=== PATIENT | female | born 1960 ===

== ENCOUNTER 2018-11-13 13:31 | Outpatient (RCR) | payer OTHER ==
--- NOTE | 2018-11-13 12:43 | RADIOLOGY IMAGING REPORT ---
FACILITY: [facility] - [place] PATIENT NAME: Estefania Chacko : 1960 MR: [id number] V: [id number] EXAM DATE: ORDERING PHYSICIAN: RUSH HOUGH TECHNOLOGIST: Location: [facility] Patient: Estefania Chacko : 1960 Visit/Account:[id number] Date of Sevice: 11/13/2018 GALLBLADDER HISTORY: Right upper quadrant pain, positive Subramanian sign COMPARISON: None. FINDINGS: Gallbladder: There multiple shadowing stones within the gallbladder. The bladder wall is thickened a t 4.7 mm periods a positive Subramanian sign by technologist notation. Liver: There is a coarse echotexture to the liver which can be seen with fatty infiltration other inf iltrative process Common duct: Normal, 3.5 mm diameter. Pancreas: Not well seen due to body habitus Right kidney: Appears unremarkable measuring 9 cm in length Upper abdominal aorta and IVC: Patent. Ascites: None visualized. IMPRESSION: Cholelithiasis with gallbladder wall thickening and a positive Subramanian sign although there is no demon stration of biliary ductal dilatation Pancreas not well seen due to body habitus Coarse echotexture to the liver which can be seen with fatty infiltration or other infiltrative proce ss Report Dictated By: Bhavna Avalos MD at 11/13/2018 12:36 PM Report E-Signed By: Bhavna Avalos MD at 11/13/2018 12:38 PM WSN:[email or web address]
[~2018-11-13 13:31] MED LIST: BIMOD OP; CIP500 PO; ESC10 PO; HYDR-3503 PO; LOR5 PO; METO200T33 PO; NAPR500T75 PO; NIFE30TA4 PO; PRE20 PO
--- NOTE | 2018-11-14 15:30 | RADIOLOGY IMAGING REPORT ---
FACILITY: [facility] - [place] PATIENT NAME: Estefania Chacko : 1960 MR: [id number] V: [id number] EXAM DATE: ORDERING PHYSICIAN: RUHS HOUGH TECHNOLOGIST: Location: [facility] Patient: Estefania Chacko : 1960 Visit/Account:[id number] Date of Sevice: 11/14/2018 Exam type: CHEST PA LAT History: Cough Comparison: June 28, 2016. Findings: The lungs are free of acute effusions, infiltrates or edema. The cardiac silhouette is enlarged but unchanged. There is moderate ectasia the thoracic aorta. There is an exaggeration of normal thoraci c kyphosis and spondylotic changes of the thoracic spine IMPRESSION: 1. Cardiomegaly unchanged No evidence of acute pulmonary consolidation Report Dictated By: Bhavna Avalos MD at 11/14/2018 3:23 PM Report E-Signed By: Bhavna Avalos MD at 11/14/2018 3:24 PM WSN:[email or web address]
[2018-11-21] MEDS ORDERED: VENL100T22 PO (15:48)
[2018-11-21] MEDS ORDERED: VENL75TA12 PO (15:48)
[2018-11-21] MEDS ORDERED: VENL50TA23 PO (15:48)
== END 2018-11-14 18:00 | disposition home or self-care (01) ==
LOC: US 13:31 → EDSTATUS 11-14 13:31 → US 11-14 18:00
PROVIDERS: ATTEND Nurse Practitioner Family
DX: K80.20 Calculus of gallbladder without cholecystitis without obstruction (principal); R19.8 Other specified symptoms and signs involving the digestive system and abdomen; R93.9 Diagnostic imaging inconclusive due to excess body fat of patient; I51.7 Cardiomegaly
CPT/HCPCS: 71046; 76705

== ENCOUNTER 2018-11-27 01:45 | Observation (INO) | payer OTHER ==
[2018-11-21 16:40] LABS: PLATELET COUNT, AUTOMATED 255 K/uL (150-450)
--- NOTE | 2018-11-21 16:50 | EKG ---
[place] [facility] [place] NAME: ANDRIY COTE : [id number] MR: [id number] V: [id number] EXAM DATE: ORDERING PHYSICIAN: EDYTA DIETZ TECHNOLOGIST: BERTHA Mccann Reason : PRE-OP Blood Pressure : / mmHG Vent. Rate : 060 BPM Atrial Rate : 060 BPM P-R Int : 140 ms QRS Dur : 098 ms QT Int : 432 ms P-R-T Axes : 046 026 047 degrees QTc Int : 432 ms Normal sinus rhythm Normal ECG No previous ECGs available Confirmed by ERICK GARCIA ([id number]) on 11/21/2018 7:54:30 PM Referred By: RASHAD Confirmed By:ERICK GARCIA
[~2018-11-27] VITALS: Ht 157.5 cm; Wt 102.5 kg
[2018-11-27] VITALS (11 sets, daily range): BP systolic 94–150; BP diastolic 50–97
[~2018-11-27 01:45] MED LIST changes: +VENL100T22 PO; +VENL50TA23 PO; +VENL75TA12 PO
[2018-11-27] MEDS ORDERED: INDOCYANINE GREEN 25 MG VIAL IVP ONE (10:00)
[2018-11-27] MEDS ORDERED: PROPOFOL EMUL(*) 10MG/ML 20 ML 20 ML ONE (12:19)
[2018-11-27] MEDS ORDERED: DEXAMETHASONE SOD 4 MG/ML VIAL ONE (12:19)
[2018-11-27] MEDS ORDERED: METOCLOPRAMIDE 10 MG/2 ML SDV ONE (12:19)
[2018-11-27] MEDS ORDERED: LIDOCAINE MPF 1% 5 ML VIAL ONE (12:19)
[2018-11-27] MEDS ORDERED: ONDANSETRON 4 MG/2 ML VIAL ONE (12:19)
[2018-11-27] MEDS ORDERED: fentaNYL CITR 250 MCG/5 ML AMP ONE (13:37)
[2018-11-27] MEDS ORDERED: SUGAMMADEX SOD 200 MG/2 ML SDV ONE (13:43)
[2018-11-27] MEDS ORDERED: fentaNYL CITR 100 MCG/2 ML AMP ONE ×2 (14:35→18:36)
[2018-11-27] MEDS ORDERED: AMPICILLIN/SULBACT (*) 3 GM VL 3 GM in NS(*) 0.9% 100 ML BAG 100 ML IVPB ONE (14:40)
[2018-11-27] MEDS ORDERED: NORMOSOL R SOLN(*) 1000 ML BAG 1,000 ML IV PRN (14:40)
[2018-11-27] MEDS ORDERED: LIDOCAINE/SOD BICARB 8.4% SYR ID ONE (14:40)
[2018-11-27] MEDS ORDERED: MIDAZOLAM 2 MG/2 ML VIAL IVP PRN (14:40)
[2018-11-27] MEDS ORDERED: FAMOTIDINE 20 MG TAB PO ONE (14:40)
[2018-11-27] MEDS ORDERED: ACETAMINOPHEN 500 MG TAB PO ONE (14:40)
[2018-11-27] MEDS ORDERED: PREGABALIN 150 MG CAPSULE PO ONE (14:40)
[2018-11-27] MEDS ORDERED: ROPIVACAINE 0.5% 20 ML VIAL ONE (15:01)
[2018-11-27] MEDS ORDERED: IOPAMIDOL 61% 100 ML INFUS BTL 100 ML ONE (15:01)
[2018-11-27] MEDS ORDERED: LEVOFLOXACIN/D5W*500 MG/100 ML 100 ML IVPB ONE ×2 (15:27→15:33)
[2018-11-27] MEDS ORDERED: WATER STERILE FOR IRRIG 1000ML IR ONE (17:02)
[2018-11-27] MEDS ORDERED: NS 0.9% IRRIGATION 1000ML PLCT IR ONE (17:02)
[2018-11-27] MEDS ORDERED: NS(*) 0.9% 1000 ML BAG 1,000 ML IV PRN (18:02)
[2018-11-27] MEDS ORDERED: ONDANSETRON 4 MG/2 ML VIAL IVP PRN (18:05)
[2018-11-27] MEDS ORDERED: MORPHINE 2 MG/ML SYR IVP PRN (18:05)
[2018-11-27] MEDS ORDERED: FLUSH 10 ML SYR IVP PRN (18:05)
--- NOTE | 2018-11-27 18:23 | Post Operative Progress Note ---
Post Operative Progress Note Date: Nov 27, 2018 Time: 18:14 Surgeon: Miri Dictation number: [id number] Anesthesia: GETA by Dr. Alfred Pre-Op Diagnosis: Symptomatic cholelithiasis Post-Op Diagnosis: Cholecystitis Findings: Markedly inflamed gallbladder with significant edema IOC attempted, couldn't get any contrast to flow through cystic duct Procedure(s): Robotic cholecystectomy Specimen Removed:(May be N/A): Gallbladder and contents Complications: None Fluids: See anesthesia record Estimated Blood Loss: Minimal Date OP Note Dictated: Nov 27, 2018 Time OP Note Dictated: 18:15 EDYTA SOLORZANO MD Nov 27, 2018 18:23
[2018-11-27] MEDS ORDERED: ALBUTEROL/IPRATROPIUM 3 ML NEB NEB PRN (18:30)
--- NOTE | 2018-11-27 19:55 | OPERATIVE REPORT 1 ---
EVENT DATE: November 27, 2018 SURGEON: Angel Chery MD ANESTHESIOLOGIST: Angel Alfred MD ANESTHESIA: General endotracheal anesthesia. PREOPERATIVE DIAGNOSIS Symptomatic gallstones. POSTOPERATIVE DIAGNOSIS Qhgii-mo-xrcdmvx cholecystitis. PROCEDURE PERFORMED Robotic cholecystectomy with attempted cholangiogram. COMPLICATIONS None. CONDITION Stable. BLOOD LOSS Minimal. FINDINGS This patient's gallbladder was very thickened and appeared to have jeknw-al-[id number] inflammation with pericholecystic edema. I attempted to perform a cholangiogram; however, in spite of being able to cannulate the cystic duct, we could not get any contrast to flow, even with backing the catheter up with the idea that it was possibly up against a valve, but even then it would not flow. SPECIMENS Gallbladder and contents. INDICATIONS This is a 58-year-old female who was referred to my office with complaints of right upper quadrant pain exacerbated by eating. She was found to have gallstones, and there was even a suggestion of a possibility of cholecystitis, but when I saw her in the office, she was no longer having any pain. She was requesting to have her gallbladder removed. DESCRIPTION OF PROCEDURE The patient was brought to the operating room and placed upon the operating table. General endotracheal anesthesia was administered, and her abdomen was prepped and draped in a sterile fashion. Timeout was completed, and I injected the infraumbilical skin with 0.5% ropivacaine plain and made a curvilinear smiley face type incision in the infraumbilical rim. I dissected through the dermis and then the subcutaneous fat and identified the midline fascia. I made a vertical incision in the midline fascia, grasped the fascial edges with Darwin clamps, and retracted the fascia towards the ceiling away from the underlying viscera. I then bluntly entered the peritoneal cavity with my finger. I placed two interrupted 0 Vicryl sutures transversely through the vertical fascial defect and inserted a 12 mm Analisa robotic type port through this wound and secured it in place with sutures. I insufflated the abdomen to a pressure of 15 mmHg and the inserted the robotic camera into the abdomen. Next under direct visualization, I placed an 8 mm robotic port in the right mid abdomen and two 8 mm robotic ports in the left abdomen, one in the left subcostal space anterior axillary line and the other one about half way between the umbilicus and the further left upper quadrant port. After this was completed, the patient was placed in reverse Trendelenburg and planed towards the left to remove the viscera from the right upper quadrant, and then the robot was brought in, docked, targeted, and the instruments inserted. I then grasped the fundus of the gallbladder and retracted it towards the patient's right shoulder. She had significant adhesions of omentum to the gallbladder. The gallbladder appeared to be grossly inflamed. I took the adhesions down fairly easily with the hook electrocautery, but there was quite a bit of them, and it took a while to do this all the way down to the infundibulum. Her entire gallbladder was surrounded by a thick layer of edematous fat that I had to get through to even identify the critical structures. Ultimately with a combination of hook electrocautery, dissection, blunt dissection with the hook, and using Firefly intermittently through the procedure, I was able to identify the cystic duct as well as the common bile duct. I also identified the artery adjacent to the cystic duct, and both the duct and the artery were cleaned off. The artery was clipped proximally and distally and divided between clips. I clipped the cystic duct at the infundibular-cystic duct junction, made a ductotomy adjacent to the clip, and threaded the cholangiocatheter that was inserted in her right subcostal skin at the beginning of the case, and then I fed it into the ductotomy. I was able to get it in for a little over 0.5 cm to almost 1 cm and clipped it into place. I could not get any saline to flush, and so I backed the catheter out a little bit. I got a little bit to flush, but then it stopped again. Ultimately, the catheter was pulled out, and the duct already had the clip on it. This patient was low risk for choledocholithiasis and had no real preop symptoms of dilated common duct or LFT abnormalities, and so I clipped the duct with three clips distal to the ductotomy and then divided the duct between the upper clips. I then divided the posterior attachments of the gallbladder, it from the gallbladder fossa, and then ultimately the gallbladder was placed in a surgical specimen retrieval bag and removed from the abdomen through the umbilical port site. The gallbladder fossa was very oozy, and the dissection was not clean due to the inflammation, but ultimately after undocking the robot, and I scrubbed back in, I was able to cauterize the gallbladder fossa, and then it was hemostatic. Then, I covered it in Surgicel and Jeremy hemostatic powder. At the of this case, it was completely dry. I irrigated and dried up over the liver and down on Ordoñez pouch and removed all irrigation fluid. At the end of this, everything looked great with no active bleeding. I did inspect the gallbladder fossa with no active bleeding. I did inspect the gallbladder fossa for both cystic duct and artery stumps for bleeding and bile leaks, and there was none. I then removed all the instruments, desufflated the abdomen, removed the ports, and then placed another 0 Vicryl jhelwu-fj-roakl suture through the vertical fascial defect and tied all three of these down with good reapproximation of the fascial edges. I then closed the skin at each port site with 4-0 Monocryl subcuticular suture. The skin was cleaned and dried, and Steri-Strips were applied, followed by sterile surgical dressings. The patient was awakened, extubated in the operating room, and transported to the recovery room in stable condition having tolerated the procedure without any apparent problems. ANNALISE
[2018-11-27] MEDS: DOCUSATE SODIUM 100 MG CAP PO SCH (20:36)
[2018-11-27] MEDS: FAMOTIDINE 20 MG TAB PO SCH (20:36)
[2018-11-28] VITALS: BP 132/74
[2018-11-28 01:00] VITALS: BP 129/68
[2018-11-28 02:00] VITALS: BP 135/69
[2018-11-28 03:30] VITALS: BP 151/80
[2018-11-28] MEDS ORDERED: PER PO (08:04)
[2018-11-28] MEDS ORDERED: DOCU-202 PO (08:04)
--- NOTE | 2018-11-28 08:09 | Short(Outpt) Discharge Summary ---
Discharge Summary Reason for Hosp/Final Diag: (1) Cholecystitis Status: Resolved Hospital Course & Plan: Robotic cholecystectomy completed without problems. Pt tolerated the procedure without issues but remained in the hospital overnight due to some respiratory issues in recovery. Now doing much better. Will d/c to home on home O2. (2) Smoker Status: Chronic (3) Obesity, Class III, BMI 40-49.9 (morbid obesity) Status: Chronic (4) Postoperative hypoxia Status: Acute Hospital Course & Plan: Home O2 Departure Discharge to: Home, Self Care Discharge Instructions Home Meds Active Scripts Oxycodone/Acetaminophen (OXYCODONE/ACETAMINOPHEN 5MG/325 MG) 5 Mg/325 Mg Tab, 1 TAB PO Q4H PRN for MODERATE PAIN, #20 TAB 0 Refills Prov:EDYTA SOLORZANO MD 11/28/18 Docusate Sodium (DOCUSATE SODIUM) 100 Mg Capsule, 1 CAP PO BID, #30 CAPSULE 0 Re fills Prov:EDYTA SOLORZANO MD 11/28/18 Reported Medications Venlafaxine Hcl (VENLAFAXINE HCL) 100 Mg Tablet, 100 MG PO QAM 11/21/18 Venlafaxine Hcl (VENLAFAXINE HCL) 75 Mg Tab, 75 MG PO QAM, #5 TAB 11/21/18 Venlafaxine Hcl (VENLAFAXINE HCL) 50 Mg Tablet, 50 MG PO QAM 11/21/18 Escitalopram Oxalate (Lexapro) 10 Mg Tab, 10 MG PO QDAY, 0 Refills 07/03/11 Nifedipine (Nifedipine Er) 30 Mg Tablet.sa, 60 MG PO, 0 Refills 07/03/11 Metoprolol Succinate (Toprol Xl) 200 Mg Tab.sr.24h, 200 MG PO DAILY 07/03/11 Discontinued Reported Medications Bimatoprost (Lumigan) 2.5 Ml Drops, 1 DROP OP HS 07/03/11 Follow up Referrals: General Surgery - 12/15/18 @ Surgery, General with EDTYA SOLORZANO MD You have a follow up appointment scheduled with Dr. Solorzano on 12/15/18, at 10:30am. Diet: Regular Activity: As Tolerated Special Instructions: You may remove the white surgical dressings on 11/29/18, then you can shower. After showering, leave the incisions open to air but leave the steristrips in place until they fall off on their own. Do not immerse the incisions for 2 weeks. EDYTA SOLORZANO MD Nov 28, 2018 08:09
[2018-11-28 08:40] VITALS: BP 118/94
[2018-11-28] MEDS: DOCUSATE SODIUM 100 MG CAP PO SCH (08:41)
[2018-11-28] MEDS: FAMOTIDINE 20 MG TAB PO SCH (08:41)
[2018-11-28] MEDS ORDERED: VENLAFAXINE HCL 50 MG PO SCH (09:00)
[2018-11-28] MEDS ORDERED: VENLAFAXINE XR 75 MG CAPCR PO SCH (09:00)
[2018-11-28] MEDS ORDERED: VENLAFAXINE HCL 75 MG PO SCH (09:00)
[2018-11-28] MEDS ORDERED: NIFEdipine XL 30 MG TABCR PO SCH (09:00)
[2018-11-28] MEDS ORDERED: METOPROLOL SUCC XL 50 MG TABCR 50 MG TAB.ER.24H PO SCH (09:00)
[2018-11-28] MEDS ORDERED: ESCITALOPRAM OXALATE 10 MG TAB PO SCH (09:00)
== END 2018-11-28 08:02 | disposition home or self-care (01) ==
LOC: OR 01:45 → UNDOADMOB 20:10 → INTOOBSV 20:10 → MED 20:10 → UNDODISOB 11-28 11:05
PROVIDERS: ADMIT Surgery; ATTEND Surgery
DX: K80.80 Other cholelithiasis without obstruction (principal); I10 Essential (primary) hypertension; E66.01 Morbid (severe) obesity due to excess calories; Z68.41 Body mass index [BMI] 40.0-44.9, adult; R09.02 Hypoxemia
CPT/HCPCS: 36415; 47563; 85025; 88304; 93005; 94640; G0378; J1100; J1956; J2001; J2405; J2704; J2765; J2795; J3010; J7030; J7620; Q9967; S2900; 82040; 82247; 82310; 82374; 82435; 82565; 82947; 84075; 84132; 84155; 84295; 84450; 84460; 84520

== ENCOUNTER → 2018-12-15 | Outpatient (CLI) | payer OTHER ==
[~2018-12-15] MED LIST changes: +DOCU-202 PO; +PER PO
--- NOTE | 2018-12-15 15:43 | RADIOLOGY IMAGING REPORT ---
FACILITY: [facility] [place] PATIENT NAME: Estefania Chacko : 1960 MR: [id number] V: [id number] EXAM DATE: [id number] ORDERING PHYSICIAN: JANIA GRAVES TECHNOLOGIST: Location: [facility] - [place] Patient: Estefania Chacko : 1960 Visit/Account:[id number] Date of Sevice: 12/15/2018 Clinical history: Screening, postmenopausal. Comparison: None. LUMBAR SPINE: The bone mineral density (BMD) measured from L1-L4 correlates with a Z-score of 0.5 and a T-score of 0.6 which is normal as defined by the World Health Organization. The corresponding risk of fracture in the lumbar spine is not increased compared with a young adult reference population. HIP: Bone mineral density (BMD) measured in the left total hip region correlates with a Z-score of 0.0 and a T-score of 0.0 which is normal as defined by the World Health Organization. The corresponding ris k of fracture in the hip is not increased compared with a young adult reference population. Bone mineral density (BMD) measured in the left femoral neck correlates with a Z-score of 0.4 and a T -score of 0.0 which is normal as defined by the World Health Organization. The corresponding risk of fracture in the hip is not increased compared with a young adult reference population. Bone mineral density (BMD) measured in the left Femoral Neck region measures 1.033 g/cm2. Impression: 1. Lumbar spine: Normal. 2. Left total hip: Normal. 3. Left femoral neck: Normal 4. Left femoral neck Bone Mineral Density is 1.033 g/cm2 The next DEXA scan of this patient should include the following sites: Lumbar spine and left hip. FRAX? WHO Fracture Risk Assessment Tool link: http://www.shef.ac.uk/FRAX/tool.jsp?locationValue=9 PLEASE NOTE: 1) The World Health Organization defines low BMD as follows: T-score Normal > -1 Osteopenia < -1 and > -2.5 Osteoporosis < -2.5 without fractures Established osteoporosis < -2.5 with fractures 2) In general, you may wish to consider: Diagnosis Treatment Follow-up DEXA Normal BMD Prevention 2-3 years Osteopenia Prevention/therapy 1-2 years Osteoporosis Therapy Yearly 3) Fracture risk estimated from the T-score is more accurate for vertebral fractures (often spontane ous) than for hip fractures. Report Dictated By: Vesta Rosario MD at 12/15/2018 3:37 PM Report E-Signed By: Vesta Rosario MD at 12/15/2018 3:40 PM WSN:[email or web address]
--- NOTE | 2018-12-16 12:25 | RADIOLOGY IMAGING REPORT ---
FACILITY: [facility] - [place] PATIENT NAME: ANDRIY COTE : [id number] MR: [id number] V: [id number] EXAM DATE: [id number] ORDERING PHYSICIAN: JANIA GRAVES TECHNOLOGIST: Genny Hirsch PROCEDURE:BILATERAL DIGITAL SCREENING MAMMOGRAM WITH CAD ASSISTED INTERPRETATION & 3D TOMOSYNTHESIS COMPARISON:Prior mammogram 10/19/2015. INDICATIONS:screening FINDINGS: The breast tissue is almost entirely fatty replaced. There is no dominant mass, suspicious cluster of calcifications or persistent areas of architectural distortion in either breast. TECHNIQUE: BILATERAL CC & MLO 3D TOMOGRAPHIC IMAGES WERE OBTAINED. CAD WAS USED. DIAGNOSTIC CATEGORY 1--NEGATIVE. RECOMMENDATIONS: ROUTINE MAMMOGRAM AND CLINICAL EVALUATION IN 1 YR. IMPRESSION: BIRADS 1: Negative. Dictated by: Byron Kim M.D. on 12/16/2018 at 11:10 Transcribed by: PETAR on 12/16/2018 at 11:42 Approved by: Byron Kim M.D. on 12/16/2018 at 12:24 [facility]
== END ==
LOC: MAMO 00:57
PROVIDERS: ATTEND Nurse Practitioner Psychiatric/Mental Health
DX: Z13.820 Encounter for screening for osteoporosis (principal); Z12.31 Encounter for screening mammogram for malignant neoplasm of breast; Z78.0 Asymptomatic menopausal state
CPT/HCPCS: 77063; 77067; 77080